=== PATIENT | female | born 1970 | race Caucasian/White ===

== ENCOUNTER 2018-03-16 12:01 | Emergency (ER) | payer BC ==
[~2018-03-16] VITALS: Ht 167.6 cm; Wt 72.1 kg
[2018-03-16] MEDS ORDERED: ERYT1OIN6 OP (12:29)
[2018-03-16] MEDS ORDERED: IBUP800T19 PO (12:29)
--- NOTE | 2018-03-16 12:29 | PHYS DOC ---
Adult General Chief Complaint Chief Complaint: EYE PROBLEMS HPI HPI Patient is a 47 year old female who presents with complaining of left upper eyelid edema and erythema and pain for few days without change of vision or eye discharge or injury to her eye. Review of Systems Review of Systems Constitutional: Denies fever or chills [] Eyes: Denies change in visual acuity, redness, or eye pain [] HENT: Denies nasal congestion or sore throat [] Respiratory: Denies cough or shortness of breath [] Cardiovascular: No additional information not addressed in HPI [] GI: Denies abdominal pain, nausea, vomiting, bloody stools or diarrhea [] : Denies dysuria or hematuria [] Musculoskeletal: Denies back pain or joint pain [] Integument: Denies rash or skin lesions [] Neurologic: Denies headache, focal weakness or sensory changes [] Endocrine: Denies polyuria or polydipsia [] All other systems were reviewed and found to be within normal limits, except as documented in this note. Physical Exam Physical Exam Constitutional: Well developed, well nourished, no acute distress, non-toxic appearance. [] HENT: Normocephalic, atraumatic, bilateral external ears normal, oropharynx moist, no oral exudates, nose normal. [] Eyes: PERRLA, EOMI, conjunctiva normal, no discharge with left upper eye lid with edema and erythema and mild tenderness. [] Neck: Normal range of motion, no tenderness, supple, no stridor. [] Cardiovascular:Heart rate regular rhythm, no murmur [] Lungs & Thorax: Bilateral breath sounds clear to auscultation [] Skin: Warm, dry, no erythema, no rash. [] Back: No tenderness, no CVA tenderness. [] Extremities: No tenderness, no cyanosis, no clubbing, ROM intact, no edema. [] Neurologic: Alert and oriented X 3, normal motor function, normal sensory function, no focal deficits noted. [] Psychologic: Affect normal, judgement normal, mood normal. [] EKG EKG [] Radiology/Procedures Radiology/Procedures [] Course & Med Decision Making Course & Med Decision Making discharge: I've spoken with the patient and/or caregivers. I've explained the patient's condition, diagnosis and treatment plan based on information available to me at this time. I've answered the patient's and/or caregivers questions and addressed any concerns. The patient and/or caregivers have a good understanding the patient's diagnosis, condition and treatment plan as can be expected at this point. Vital signs have been stabilized. The patient's condition is stable for discharge from the emergency department. The patient will pursue further outpatient evaluation with her primary care provider or other designated consulting physician as outlined in the discharge instructions. Patient and/or caregivers are agreeable to this plan of care and follow-up instructions have been explained in detail. The patient and/or caregivers have received these instructions in written format and expressed understanding of these discharge instructions. The patient and her caregivers are aware that if any significant change in condition or worsening of symptoms should prompt him to immediately return to this of the closest emergency department. If an emergent department is not readily available I would encourage him to call 911. Lalo Disclaimer Dragon Disclaimer This electronic medical record was generated, in whole or in part, using a voice recognition dictation system. Departure Departure: Impression: Primary Impression: Cellulitis of left eyelid Disposition: HOME, SELF-CARE (at 1226) Condition: STABLE Referrals: PCP,NO (PCP) Patient Instructions: Cellulitis Additional Instructions: Apply warm compresses on left eyelid Follow-up with your primary care physician in 3-5 days Return to ER if not getting better Scripts Ibuprofen (IBUPROFEN) 800 Mg Tablet 800 MG PO TID PRN for PAIN, #20 TAB Prov: BLAINE DUNBAR MD 03/16/18 Erythromycin Base (Erythromycin) 1 Gm Oint...g. 1 HERBERT OP QID for 7 Days, #1 MISC Prov: BLAINE DUNBAR MD 03/16/18 BLAINE DUNBAR MD Mar 16, 2018 12:29
[2018-03-16 12:34] VITALS: BP 121/85
== END 2018-03-16 12:34 | disposition home or self-care (01) ==
LOC: ER 12:30
DX: H00.034 Abscess of left upper eyelid (principal)
CPT/HCPCS: 99283

== ENCOUNTER 2018-09-01 21:01 | Emergency (ER) | payer BC ==
[~2018-09-01] VITALS: Ht 167.6 cm; Wt 72.1 kg
[~2018-09-01 21:01] MED LIST: ERYT1OIN6 OP; IBUP800T19 PO
--- NOTE | 2018-09-01 21:06 | ED.ADGEN ---
Past History Past Medical History: Hypertension, Other Past Surgical History: Cholecystectomy, Hysterectomy, Oophorectomy, Other Alcohol Use: Occasionally Drug Use: None Adult General Chief Complaint Chief Complaint ".. I got bad dental pain... it same tooth I chipped last yearr and again yesterday... I got an apt. plan HPI HPI Patient is a 48 year old female who presents with above hx and dental pain. Patient localizes her pain in area of molar 15. No trismus. Does have obvious fracture to the tooth 15. Does have area of dental decay. Patient denies any history of immunosuppression. Patient denies any recent trauma. Patient does have plans for dental repair. Review of Systems Review of Systems Constitutional: Denies fever or chills [] Eyes: Denies change in visual acuity, redness, or eye pain [] HENT: Denies nasal congestion or sore throat []complaints of dental pain Respiratory: Denies cough or shortness of breath [] Cardiovascular: No additional information not addressed in HPI [] GI: Denies abdominal pain, nausea, vomiting, bloody stools or diarrhea [] : Denies dysuria or hematuria [] Musculoskeletal: Denies back pain or joint pain [] Integument: Denies rash or skin lesions [] Neurologic: Denies headache, focal weakness or sensory changes [] Endocrine: Denies polyuria or polydipsia [] All other systems were reviewed and found to be within normal limits, except as documented in this note. Family History Family History Non-Contributory Current Medications Current Medications Current Medications Medications (Trade) Dose Ordered Sig/Estee Start Time Stop Time Status Last Admin Dose Admin Cephalexin HCl (Keflex) 500 mg 1X ONCE 09/01/18 22:00 09/01/18 22:01 DC 09/01/18 21:39 500 MG Hydrocodone Bitartrate/ Ibuprofen (Vicoprofen 7.5-200) 2 tab 1X ONCE 09/01/18 22:00 09/01/18 22:01 DC 09/01/18 21:39 2 TAB Allergies Allergies Allergies Coded Allergies Type Severity Reaction Last Updated Verified No Known Drug Allergies 03/16/18 No Physical Exam Physical Exam Constitutional: in acute distress, non-toxic appearance. [] HENT: Normocephalic, atraumatic, bilateral external ears normal, oropharynx moist, no oral exudates, nose normal. Dental carries- localization to tooth 15. Eyes: PERRLA, EOMI, conjunctiva normal, no discharge. [] Neck: Normal range of motion, no tenderness, supple, no stridor. [] Cardiovascular:Heart rate regular rhythm, no murmur [] Lungs & Thorax: Bilateral breath sounds clear to auscultation [] Abdomen: Bowel sounds normal, soft, no tenderness, no masses, no pulsatile masses. [] Old scars. Skin: Warm, dry, no erythema, no rash. [] Back: No tenderness, no CVA tenderness. [] Extremities: No tenderness, no cyanosis, no clubbing, ROM intact, no edema. [] Neurologic: Alert and oriented X 3, normal motor function, normal sensory function, no focal deficits noted. [] Psychologic: Affect anxious, judgement normal, mood normal. [] Current Patient Data Vital Signs Vital Signs Date Time Temp Pulse Resp B/P (MAP) Pulse Ox O2 Delivery O2 Flow Rate FiO2 09/01/18 21:15 97.7 86 18 95 Room Air EKG EKG [] Radiology/Procedures Radiology/Procedures [] Course & Med Decision Making Course & Med Decision Making Pertinent Labs and Imaging studies reviewed. (See chart for details). Patient must follow-up with dentist. Patient take Tylenol/ ibuprofen for pain. Patient may use sugarless gum to include fractured tooth on left upper molar area. Patient take Keflex 500 mg 3 times a day. Patient may take Vicoprofen up to 4 times a day for marked pain. Must see a dentist. Advised further narcotics must be filled with primary care or her dentist. [] Final Impression Final Impression 1. Dental Pain[] 2. Dental Decay and Fracture Lt. upper molar -# 15 Dragon Disclaimer Dragon Disclaimer This electronic medical record was generated, in whole or in part, using a voice recognition dictation system. Discharge Summary Visit Information Final Diagnosis Problems Medical Problems: (1) Pain, dental Status: Acute Brief Hospital Course Allergies Allergies Coded Allergies Type Severity Reaction Last Updated Verified No Known Drug Allergies 03/16/18 No Vital Signs Vital Signs Date Time Temp Pulse Resp B/P (MAP) Pulse Ox O2 Delivery O2 Flow Rate FiO2 09/01/18 21:15 97.7 86 18 95 Room Air Brief Hospital Course Ms. Valenzuela is a 48 old female who presented with dental pain. Discharge Information Condition at Discharge: Improved, Stable Disposition/Orders: D/C to Home Dischare Medications Current Medications Hydrocodone Bitartrate/ Ibuprofen (Vicoprofen 7.5-200) 2 tab 1X ONCE PO Last administered on 09/01/18at 21:39; Admin Dose 2 TAB; Start 09/01/18 at 22:00; Stop 09/01/18 at 22:01; Status DC Cephalexin HCl (Keflex) 500 mg 1X ONCE PO Last administered on 09/01/18at 21:39 ; Admin Dose 500 MG; Start 09/01/18 at 22:00; Stop 09/01/18 at 22:01; Status DC Active Scripts Active Keflex (Cephalexin) 500 Mg Capsule 500 Mg PO TID 10 Days Hydrocodone-Ibuprofen 7.5-200 (Hydrocodone/Ibuprofen) 1 Each Tablet 1 Tab PO PRN Q6HRS PRN Ibuprofen 800 Mg Tablet 800 Mg PO TID PRN Erythromycin (Erythromycin Base) 1 Gm Oint...g. 1 Kenny OP QID 7 Days Lalo Disclaimer This chart was dictated in whole or in part using Voice Recognition software in a busy, high-work load, and often noisy Emergency Department environment. It may contain unintended and wholly unrecognized errors or omissions. ALECIA OTERO MD Sep 01, 2018 21:06
[2018-09-01 21:15] VITALS: BP 170/112
[2018-09-01] MEDS ORDERED: HYDR-1179 PO (21:48)
[2018-09-01] MEDS ORDERED: CEPH-264 PO (21:48)
[2018-09-01] MEDS ORDERED: HYDROcodon/IBUPROFEN 7.5/200MG 1 TAB TABLET PO ONE (22:00)
[2018-09-01] MEDS ORDERED: CEPHALEXIN 250 MG CAPSULE PO ONE (22:00)
== END 2018-09-01 22:22 | disposition home or self-care (01) ==
LOC: ER 21:01
DX: S02.5XXA Fracture of tooth (traumatic), initial encounter for closed fracture (principal); K02.9 Dental caries, unspecified; I10 Essential (primary) hypertension; X58.XXXA Exposure to other specified factors, initial encounter; Y93.89 Activity, other specified; Y92.89 Other specified places as the place of occurrence of the external cause; Y99.8 Other external cause status
CPT/HCPCS: 99283

== ENCOUNTER 2019-01-03 17:29 | Emergency (ER) | payer BC ==
[~2019-01-03] VITALS: Ht 167.6 cm; Wt 81.6 kg
[~2019-01-03 17:29] MED LIST changes: +CEPH-264 PO; +HYDR-1179 PO
[2019-01-03 17:40] VITALS: BP 138/96
[2019-01-03] MEDS ORDERED: MELO7.5T29 PO (18:11)
[2019-01-03] MEDS ORDERED: HYDR-3165 PO (18:11)
[2019-01-03] MEDS ORDERED: AMOX500T PO (18:11)
--- NOTE | 2019-01-03 18:11 | PHYS DOC ---
Past History Past Medical History: Hypertension Past Surgical History: Cholecystectomy, Hysterectomy Smoking: Cigarettes, Less than 1pk/day Alcohol Use: Occasionally Drug Use: None Adult General Chief Complaint Chief Complaint: DENTAL PROBLEM HPI HPI Patient is a 8-year-old female presents with left upper dental pain and swelling. Last night while eating ice cream part of her tooth and filling cracked and fell out. She did not have any pain at that time. Pain has developed throughout the course of the day today. She has been unable to get in with the [facility]. No purulent drainage. No significant improvement with home medicines. No fever. Both hot and cold sensitivity are present. Pain is moderate in intensity. No radiation of the discomfort [] Review of Systems Review of Systems Constitutional: Denies fever or chills [] Eyes: Denies change in visual acuity, redness, or eye pain [] HENT: Denies nasal congestion or sore throat, see history of present illness [] Respiratory: Denies cough or shortness of breath [] Cardiovascular: No chest pain or palpitations[] GI: Denies abdominal pain, nausea, vomiting, bloody stools or diarrhea [] : Denies dysuria or hematuria [] Musculoskeletal: Denies back pain or joint pain [] Integument: Denies rash or skin lesions [] Neurologic: Denies headache, focal weakness or sensory changes [] Endocrine: Denies polyuria or polydipsia [] All other systems were reviewed and found to be within normal limits, except as documented in this note. Allergies Allergies Allergies Coded Allergies Type Severity Reaction Last Updated Verified No Known Drug Allergies 03/16/18 No Physical Exam Physical Exam Constitutional: Well developed, well nourished, no acute distress, non-toxic appearance. [] HENT: Normocephalic, atraumatic, bilateral external ears normal, oropharynx mois t, no oral exudates, nose normal. Swelling and tenderness in the left upper teeth region with multiple areas of tenderness to palpation. There is no root exposure. There is some swelling over the left zygoma. No crepitus. Uvula is midline. No enlarged tonsils.[] Eyes: PERRLA, EOMI, conjunctiva normal, no discharge. [] Neck: Normal range of motion, no tenderness, supple, no stridor, no cervical lymphadenopathy. [] Cardiovascular:Heart rate regular rhythm, no murmur [] Lungs & Thorax: Bilateral breath sounds clear to auscultation []. [] Skin: Warm, dry, no erythema, no rash. [] Abdomen: Not examined Back: No tenderness, no CVA tenderness. [] Extremities: No tenderness, no cyanosis, no clubbing, ROM intact, no edema. [] Neurologic: Alert and oriented X 3, normal motor function, normal sensory function, no focal deficits noted. [] Psychologic: Affect normal, judgement normal, mood normal. [] Current Patient Data Vital Signs Vital Signs Date Time Temp Pulse Resp B/P (MAP) Pulse Ox O2 Delivery O2 Flow Rate FiO2 01/03/19 17:40 97.8 86 21 96 Room Air EKG EKG [] Radiology/Procedures Radiology/Procedures [] Course & Med Decision Making Course & Med Decision Making Pertinent Labs and Imaging studies reviewed. (See chart for details) Medical decision making: This appears to be dental infection along with broken r estoration. No evidence of systemic infection, no evidence of meningitis or encephalitis. No evidence of impending airway or pharyngeal compromise.[] Dragon Disclaimer Dragon Disclaimer This electronic medical record was generated, in whole or in part, using a voice recognition dictation system. Departure Departure: Impression: Primary Impression: Dental infection Disposition: HOME, SELF-CARE Condition: IMPROVED Referrals: PCPMARGOT (PCP) Patient Instructions: Dental Abscess, Dental Caries Additional Instructions: Follow-up with your regular doctor or dentist in 2 days. If he did not have one a list of local clinics we provided for you. Swish and spit a warm saltwater s olution at least 4 times a day. This saltwater solution can be made with 1 teaspoon of table salt dissolved in 8 ounces of warm water. Return to the ER if worsening pain, fever of more than 101�, or any other concerns. Scripts Hydrocodone Bit/Acetaminophen (NORCO 5-325 TABLET) 1 Each Tablet 1 TAB PO Q4-6HRS for severe pain, #20 TAB Prov: GABRIELE ENAMORADO DO 01/03/19 Meloxicam (MELOXICAM) 7.5 Mg Tablet 7.5 MG PO DAILY for PAIN, #20 TAB Prov: GABRIELE ENAMORADO DO 01/03/19 Amoxicillin (AMOXICILLIN) 500 Mg Tablet 500 MG PO TID for dental infection for 10 Days, #30 TAB Prov: GABRIELE ENAMORADO DO 01/03/19 GABRIELE ENAMORADO DO Jan 03, 2019 18:11
== END 2019-01-03 18:22 | disposition home or self-care (01) ==
LOC: ER 17:29
DX: K04.7 Periapical abscess without sinus (principal); I10 Essential (primary) hypertension; F17.210 Nicotine dependence, cigarettes, uncomplicated
CPT/HCPCS: 99283